=== PATIENT | female | born 1980 ===

== ENCOUNTER 2022-01-08 10:15 | Inpatient (IN) | payer OTHER ==
[~2022-01-08] VITALS: Ht 152.4 cm; Wt 61.2 kg
[2022-01-08] MEDS ORDERED: PROTONIX20 MG PO (14:02)
[2022-01-08] MEDS ORDERED: BENT PO (14:03)
[2022-01-17] MEDS ORDERED: PERCOCET 5-3251 EACH PO (11:33)
== END 2022-01-17 13:48 | disposition home or self-care (01) | DRG 331 ==
LOC: SURH 01-14 07:00 → O/R 01-14 14:06 → SURH 01-14 14:18
PROVIDERS: ADMIT Surgery; ATTEND Surgery
PROC: 0DBP4ZZ Excision of Rectum, Percutaneous Endoscopic Approach (ICD-10-PCS; 2022-01-14)
PROC: 0DTN4ZZ Resection of Sigmoid Colon, Percutaneous Endoscopic Approach (ICD-10-PCS; principal; 2022-01-14 07:00)
DX: K57.32 Diverticulitis of large intestine without perforation or abscess without bleeding (principal); R10.32 Left lower quadrant pain; K59.09 Other constipation

== ENCOUNTER 2022-01-20 19:15 | Inpatient (IN) | payer OTHER ==
[~2022-01-20] VITALS: Ht 152.4 cm; Wt 54.4 kg
[~2022-01-20 19:15] MED LIST: BENT PO; PERCOCET 5-3251 EACH PO; PROTONIX20 MG PO
--- NOTE | 2022-01-20 19:32 | NUR ---
SE RECIBE PTE ALERTA Y ORIENTADA X3 QUIEN REFIERE FUE OPERADA DE DIVERTICULOS EL ANOOP 01/14/[address] ILIANA STORM. EL VIERNES FUE ABHI DE MINA Y HOY COMENZO CON FIEBRE, DOLOR ABDOMINAL Y APROX 6 DIARREAS. SONDRA LLAMO AL Y ABELARDO LE INDICO QUE VISITARA LA PATY DE EMERGENCIA SI LE SEGUIA SUBIENDO LA FIEBRE. SE LE MONITOREAN S/V Y AL MOMENTO DEL TRIAGE ESTA PRESENTA FIEBRE DE 100.9. SE UBICA PTE.
--- NOTE | 2022-01-20 21:02 | NUR ---
PACIENTE EVEALUADA POR EL JASON ABBOTT QUIEN [place] MEDICO. SE ORIENTA A APCIENTE SOBRE EL MISMO REFIERE ENETENDER Y RN ANDERSON EJECUTA ORDENES MEDICAS. SE ENTREGAN CONTRASTES ORALES A PACIENTE PARA REALIZACION DE CT ABDOMINAL Y PELVICO CON CONRASTES. SE ENTREGA FRASCO PARA MUESTRAS DE U/A U/C FECAL LEUCOCITOS Y CLOSTRIDIUM.
--- NOTE | 2022-01-20 23:11 | NUR ---
PTE ALERTA Y ORIENTADA X3, PTE CANALIZADA AREA GOSIA DE EDEMA Y DE ENROJECIMIENTO MEDICO. PTE EN ESPERA DE CT PO/IV PENDIENTE A LAS 11:45PM.
--- NOTE | 2022-01-21 07:00 | NUR ---
SE RECIBE PACIENTE FEMENINA ALERTA Y ORIENTADA X3, EN HERON #8 CON BARRANDAS ELEVADAS. AREA DE VENOPUNCION PATENTE GOSIA DE EDEMA Y ENROJECIMIENTO. PENDIENTE CONSULTA CON DR. ILIANA HERNANDEZ. SE LE LARS EN TODO MOMENTO PRIVACIDAD Y SEGURIDAD.
== END 2022-01-24 15:14 | disposition home or self-care (01) | DRG 372 ==
LOC: ER 19:15 → SEC-K 01-21 08:19 → SURH 01-21 08:19
PROVIDERS: ADMIT Surgery; ATTEND Surgery
DX: A04.72 Enterocolitis due to Clostridium difficile, not specified as recurrent (principal); K57.32 Diverticulitis of large intestine without perforation or abscess without bleeding; M41.80 Other forms of scoliosis, site unspecified; D72.828 Other elevated white blood cell count